=== PATIENT | female | born 1995 | race Caucasian/White ===

== ENCOUNTER 2024-07-04 10:26 | Emergency (ER) | payer SELFPAY ==
--- NOTE | 2024-07-04 10:57 | ER ---
Nurse's Notes [facility] Name: Martha Silverman Age: 29 yrs Sex: Female : 1995 Arrival Date: 07/04/2024 Time: 10:26 Bed IW1 Private MD: Diagnosis: Acute suppurative otitis media;Other otitis externa, right ear Presentation: 07/04 10:48 Chief complaint: Patient states: R ear pain X 2 days. Coronavirus screen: At this time, ld1 the client does not indicate any symptoms associated with coronavirus-19. Ebola Screen: No symptoms or risks identified at this time. Initial Sepsis Screen: Does the patient meet any 2 criteria? No. Patient's initial sepsis screen is negative. Does the patient have a suspected source of infection? No. Patient's initial sepsis screen is negative. Risk Assessment: Do you want to hurt yourself or someone else? Patient reports no desire to harm self or others. Onset of symptoms was July 04, 2024. 10:48 Method Of Arrival: Ambulatory ld1 10:48 Acuity: MARIELLA 4 ld1 Triage Assessment: 10:50 General: Appears in no apparent distress. comfortable, Behavior is calm, cooperative, ld1 appropriate for age. Pain: Complains of pain in right ear Pain does not radiate. Pain currently is 10 out of 10 on a pain scale. Quality of pain is described as throbbing. EENT: Reports pain in right ear. Neuro: Level of Consciousness is awake, alert, obeys commands, Oriented to person, place, time, situation. Cardiovascular: Capillary refill < 3 seconds Patient's skin is warm and dry. Respiratory: Airway is patent Respiratory effort is even, unlabored. GI: Abdomen is round obese. : No signs and/or symptoms were reported regarding the genitourinary system. Derm: No signs and/or symptoms reported regarding the dermatologic system. Musculoskeletal: No signs and/or symptoms reported regarding the musculoskeletal system. Historical: - Allergies: 10:49 No Known Allergies; ld1 - Home Meds: 10:49 Propranolol Oral [Active]; Hydroxyzine Pamoate Oral [Active]; ld1 - PMHx: 10:49 Hypercholesterolemia; Anxiety; ld1 - Immunization history:: Adult Immunizations up to date. - Infectious Disease History:: Denies. - Social history:: Smoking status: Patient denies any tobacco usage or history of. Screenin:11 [facility] ED Fall Risk Assessment (Adult) History of falling in the last 3 months, ld1 including since admission No falls in past 3 months (0 pts) Confusion or Disorientation No (0 pts) Intoxicated or Sedated No (0 pts) Impaired Gait No (0 pts) Mobility Assist Device Used No (0 pt) Altered Elimination No (0 pt) Score/Fall Risk Level 0 - 2 = Low Risk Oriented to surroundings, Maintained a safe environment, Educated pt \T\ family on fall prevention, incl call for assistance when getting out of bed, Assessed \T\ reinforced patient's understanding of fall precautions, Provided non-skid footwear, Hourly rounding (assess needs \T\ fall precautionary measures) done, Used ambulatory aids as needed (educated on \T\ assisted with), Used gait belt as appropriate. Abuse screen: Denies threats or abuse. Denies injuries from another. Nutritional screening: No deficits noted. Tuberculosis screening: No symptoms or risk factors identified. Assessment: 11:11 Reassessment: See triage assessment. ld1 Vital Signs: 10:48 Pulse 97; Resp 18; Temp 98.1(TE); Pulse Ox 100% on R/A; Weight 131.54 kg; Height 5 ft. ld1 2 in. ; Pain 10/10; 10:50 BP 136 / 74; ld1 10:48 Body Mass Index 53.04 (131.54 kg, 157.48 cm) ld1 10:48 Pain Scale: Adult ld1 ED Course: 10:30 Patient arrived in ED. mr 10:39 Panda Gilliam MD is Attending Physician. ec2 10:49 Triage completed. ld1 10:50 Arm band placed on right wrist. ld1 11:11 Uma Quiroga RN is Primary Nurse. ld1 11:11 Patient has correct armband on for positive identification. Call light in reach. Pulse ld1 ox on. NIBP on. Door closed. Noise minimized. 11:11 No provider procedures requiring assistance completed. Patient did not have IV access ld1 during this emergency room visit. Administered Medications: 11:11 Not Given (Patient Refused): [id number] mg IM once ld1 11:11 Drug: Amoxicillin-Clavulanate PO 875 mg PO once Route: PO; ld1 11:12 Follow up: Response: No adverse reaction ld1 Medication: 11:11 VIS not applicable for this client. ld1 Outcome: 10:56 Discharge ordered by . ec2 11:11 Discharged to home ambulatory, ld1 11:11 Condition: stable 11:11 Discharge instructions given to patient, Instructed on discharge instructions, follow up and referral plans. Demonstrated understanding of instructions, follow-up care, medications, Prescriptions given X 2, 11:12 Patient left the ED. ld1 Signatures: Giselle Maldonado Reg Reg mr Sims, Lauren, RN RN ld1 Panda Gilliam MD MD ec2
--- NOTE | 2024-07-04 10:57 | EDPHYS ---
Physician Documentation [facility] Name: Martha Silverman Age: 29 yrs Sex: Female : 1995 Arrival Date: 07/04/2024 Time: 10:26 Bed IW1 Private MD: ED Physician Panda Gilliam HPI: 07/04 10:57 This 29 yrs old Female presents to ER via Ambulatory with complaints of ec2 Right, Ear Pain. 10:57 Patient arrives today for evaluation of right ear pain. Reports several days. No ec2 fevers, no chills. Reports some moisture to the right ear, no drainage. Denies any issues with p.o. intake. No cough and cold symptoms.. Historical: - Allergies: 10:49 No Known Allergies; ld1 - Home Meds: 10:49 Propranolol Oral [Active]; Hydroxyzine Pamoate Oral [Active]; ld1 - PMHx: 10:49 Hypercholesterolemia; Anxiety; ld1 - Immunization history:: Adult Immunizations up to date. - Infectious Disease History:: Denies. - Social history:: Smoking status: Patient denies any tobacco usage or history of. ROS: 10:57 Constitutional: as per hpi ec2 Exam: 10:57 Constitutional: GEN: NAD Head: atraumatic Eyes: EOMI Ears: Right ear with otitis ec2 media and externa. CV: regular rate LUNGS: no respiratory distress ABD: non-distended SKIN: no evidence of rashes MSK: no evidence of trauma Vital Signs: 10:48 Pulse 97; Resp 18; Temp 98.1(TE); Pulse Ox 100% on R/A; Weight 131.54 kg; Height 5 ft. ld1 2 in. ; Pain 10/10; 10:50 BP 136 / 74; ld1 10:48 Body Mass Index 53.04 (131.54 kg, 157.48 cm) ld1 10:48 Pain Scale: Adult ld1 MDM: 10:47 Medical Screening Exam initiated ec2 10:57 Data reviewed: vital signs, nurses notes. ED course: Patient arrives today for ec2 evaluation of right ear pain. Examination yields ear findings as above. Suspect otitis media and externa. Restart the patient on appropriate antibiotics. Return precautions given.. Administered Medications: 11:11 Not Given (Patient Refused): [id number] mg IM once ld1 11:11 Drug: Amoxicillin-Clavulanate PO 875 mg PO once Route: PO; ld1 11:12 Follow up: Response: No adverse reaction ld1 Disposition Summary: 07/04/24 10:56 Discharge Ordered Notes: Location: Home ec2 Condition: Stable ec2 Diagnosis - Acute suppurative otitis media ec2 - Other otitis externa, right ear ec2 Followup: ec2 - With: Private Physician - When: - Reason: Re-evaluation by your physician Discharge Instructions: - Discharge Summary Sheet ec2 - Otitis Media, Adult, [id number] ec2 Forms: - Medication Reconciliation Form ec2 - Antibiotic Education ec2 - Prescription Opioid Use ec2 - Patient Portal Instructions ec2 - Leadership Thank You Letter ec2 Prescriptions: - ofloxacin 0.3 % Otic drops - instill 5 drop OTIC route every 24 hours for 7 days; 5 milliliter; Refills: 0, ec2 Product Selection Permitted - Augmentin 875-125 mg Oral Tablet - take 1 tablet ORAL route every 12 hours for 10 days; 20 tablet; Refills: 0, ec2 Product Selection Permitted Signatures: Uma Quiroga RN RN ld1 Panda Gilliam MD MD ec2
[2024-07-04] MEDS ORDERED: KETOROLAC 30 MG/ML INJ ONE (11:08)
[2024-07-04] MEDS ORDERED: AMOX/K CLAV 875 MG TAB ONE (11:08)
== END 2024-07-04 11:12 | disposition home or self-care (01) ==
LOC: ER 10:26
DX: H66.001 Acute suppurative otitis media without spontaneous rupture of ear drum, right ear (principal); H60.8X1 Other otitis externa, right ear
CPT/HCPCS: 99283